=== PATIENT | female | born 1955 | race Caucasian/White ===

== ENCOUNTER 2023-03-12 14:19 | Inpatient (IN) | payer MEDICARE, OTHER ==
[~2023-03-12] VITALS: Ht 157.5 cm; Wt 103.6 kg
[2023-03-12] MEDS ORDERED: PANT40TA29 PO (14:38)
[2023-03-12] MEDS ORDERED: ATOR40TA75 PO (14:38)
[2023-03-12] MEDS ORDERED: GABA-284 PO (14:38)
[2023-03-12] MEDS ORDERED: ECOT81TA5 PO (14:40)
[2023-03-12] MEDS ORDERED: SERT25TA85 PO (14:40)
[2023-03-12] MEDS ORDERED: MIRA0.254 PO (14:40)
[2023-03-12] MEDS ORDERED: MONT10TA97 PO (14:40)
[2023-03-12] MEDS ORDERED: ZOLP5TAB PO (14:40)
[2023-03-12 15:25] LABS: BASO % 0.6 % (0.0-1.0); EOS # 0.1 10^3/uL (0.0-0.5); EOS % 0.9 % (0.0-3.0); HEMATOCRIT 44.4 % (36.0-47.0); HEMOGLOBIN 14.9 g/dl (12.0-15.5); LYMPH # 2.1 10^3/uL (1.5-5.0); LYMPH % 39.9 % (24.0-44.0); MEAN CORPUSCULAR HEMOGLOBIN 31.1 pg (27.0-33.0); MEAN CORPUSCULAR HGB CONC 33.6 g/dl (32.0-36.5); MEAN CORPUSCULAR VOLUME 92.7 fl (80.0-96.0); MONO # 0.4 10^3/uL (0.0-0.8); MONO % 7.5 % (2.0-8.0); NEUTROPHILS # 2.7 10^3/uL (1.5-8.5); NEUTROPHILS % 50.7 % (36.0-66.0); PLATELET COUNT, AUTOMATED 175 10^3/uL (150-450); RED BLOOD COUNT 4.79 10^6/uL (4.00-5.40); WHITE BLOOD COUNT 5.3 10^3/uL (4.0-10.0)
[2023-03-12 15:44] LABS: BLOOD UREA NITROGEN 11 MG/DL (9-23); CARBON DIOXIDE LEVEL 28 MMOL/L (20-31); CHLORIDE LEVEL 107 MMOL/L (98-107); CREATININE FOR GFR 0.73 MG/DL (0.55-1.30); GLOMERULAR FILTRATION RATE > 60.0 (>45); GLUCOSE, FASTING 102 MG/DL (74-106); POTASSIUM SERUM 3.9 MMOL/L (3.5-5.1); SODIUM LEVEL 141 MMOL/L (136-145)
[2023-03-12 15:49] LABS: RSV AMPLIFICATION NEGATIVE (NEGATIVE)
[2023-03-12] MEDS ORDERED: dexAMETHasone 20MG/5ML VIAL IV ONE (17:25)
[2023-03-12] MEDS ORDERED: ACETAMINOPHEN TAB 650MG DOSE (2X325MG) PO ONE (17:25)
[2023-03-12] MEDS ORDERED: ISOVUE-370 76% 100ML VIAL As Ordered ONE (17:29)
[2023-03-12 17:46] LABS: CK-MB VALUE MASS < 1.0 NG/ML (<3.6)
[2023-03-12] MEDS: IPRATROPIUM 0.5MG/ALBUTEROL 2.5MG INH SOL UD 3ML (DUONEB) NEB PRN ×2 (17:51→18:12)
[2023-03-12 17:55] LABS: CPK CREATINE PHOSPHOKINASE 205 U/L (34-145); MB/CK RELATIVE INDEX 0.48 (< OR =4)
[2023-03-12] MEDS ORDERED: IBUPROFEN 600MG TAB PO ONE (21:10)
[2023-03-13] MEDS ORDERED: NS 1,000 ML IV ONE (00:50)
[2023-03-13] MEDS ORDERED: IPRATROPIUM 0.5MG/ALBUTEROL 2.5MG INH SOL UD 3ML (DUONEB) NEB PRN (00:50)
[2023-03-13 06:13] LABS: BASO % 0.2 % (0.0-1.0); HEMATOCRIT 44.5 % (36.0-47.0); HEMOGLOBIN 14.7 g/dl (12.0-15.5); LYMPH % 20.7 % (24.0-44.0); MEAN CORPUSCULAR HEMOGLOBIN 30.9 pg (27.0-33.0); MEAN CORPUSCULAR VOLUME 93.5 fl (80.0-96.0); MONO # 0.1 10^3/uL (0.0-0.8); MONO % 1.5 % (2.0-8.0); NEUTROPHILS # 3.6 10^3/uL (1.5-8.5); NEUTROPHILS % 77.2 % (36.0-66.0); PLATELET COUNT, AUTOMATED 175 10^3/uL (150-450); RED BLOOD COUNT 4.76 10^6/uL (4.00-5.40); WHITE BLOOD COUNT 4.6 10^3/uL (4.0-10.0)
[2023-03-13 06:29] LABS: ALBUMIN 3.5 G/DL (3.2-5.2); ALKALINE PHOSPHATASE 83 U/L (46-116); ALT/SGPT 24 U/L (7.0-40); AST/SGOT 17 U/L (<34); BILIRUBIN,TOTAL 0.4 MG/DL (0.3-1.2); BLOOD UREA NITROGEN 13 MG/DL (9-23); CALCIUM LEVEL 8.9 MG/DL (8.3-10.6); CARBON DIOXIDE LEVEL 22 MMOL/L (20-31); CHLORIDE LEVEL 111 MMOL/L (98-107); GLOMERULAR FILTRATION RATE > 60.0 (>45); GLUCOSE, FASTING 138 MG/DL (74-106); POTASSIUM SERUM 4.2 MMOL/L (3.5-5.1); SODIUM LEVEL 142 MMOL/L (136-145); TOTAL PROTEIN 6.8 G/DL (5.7-8.2)
[2023-03-13] MEDS ORDERED: MED REC IN PROGRESS XX SCH (08:35)
[2023-03-13] MEDS ORDERED: GABA600T4 PO (08:48)
[2023-03-13] MEDS ORDERED: PRED20TA PO (08:58)
[2023-03-13] MEDS ORDERED: VENTAER INH (08:59)
[2023-03-13] MEDS ORDERED: BENZONATATE 100MG CAPSULE PO SCH (09:00)
[2023-03-13] MEDS ORDERED: PANTOPRAZOLE 40MG TAB (PROTONIX) PO SCH (09:00)
[2023-03-13] MEDS ORDERED: BENZ-18 PO (09:00)
[2023-03-13] MEDS ORDERED: PANTOPRAZOLE 40MG VIAL IV SCH (09:00)
[2023-03-13] MEDS ORDERED: ENOXAPARIN 40MG/0.4ML SYRINGE (J1650 PER 10MG) SC SCH (09:00)
[2023-03-13 10:30] VITALS: BP 118/56; TEMP 98.1; O2SAT 96
== END 2023-03-13 10:52 | disposition home or self-care (01) | DRG 178 ==
LOC: M ED 14:19 → M ED INP 23:20
PROVIDERS: ADMIT Family Medicine; ATTEND Family Medicine
PROC: 3E0333Z Introduction of Anti-inflammatory into Peripheral Vein, Percutaneous Approach (ICD-10-PCS; principal; 2023-03-12)
DX: U07.1 COVID-19 (principal); J84.9 Interstitial pulmonary disease, unspecified; J45.909 Unspecified asthma, uncomplicated; E78.5 Hyperlipidemia, unspecified; K21.9 Gastro-esophageal reflux disease without esophagitis; G62.9 Polyneuropathy, unspecified; F32.A Depression, unspecified; G47.00 Insomnia, unspecified; Z90.79 Acquired absence of other genital organ(s); Z79.82 Long term (current) use of aspirin; Z79.52 Long term (current) use of systemic steroids; Z79.899 Other long term (current) drug therapy; Z88.0 Allergy status to penicillin; Z88.1 Allergy status to other antibiotic agents; Z86.16 Personal history of COVID-19